=== PATIENT | female | born 2000 | race Caucasian/White ===

== ENCOUNTER 2023-01-21 14:24 | Emergency (ER) | payer BC ==
[~2023-01-21] VITALS: Ht 170.2 cm; Wt 52.2 kg
[2023-01-21 14:30] VITALS: BP_SYST 120
[2023-01-21 15:54] LABS: ANION GAP 9 (5-15); BASOPHILS % (AUTO) 0.4 % (0.0-2.0); CALCIUM 9.1 mg/dL (8.4-11.0); CHLORIDE 100 mmol/L (98-107); CREATININE 0.88 mg/dL (0.55-1.30); EOSINOPHILS % (AUTO) 0.8 % (0.0-4.0); GFR AFRICAN AMERICAN 104 mL/min (>90); GLUCOSE 122 mg/dL (70-99); HEMATOCRIT 38.5 % (36-48); HEMOGLOBIN 13.3 g/dL (12.0-16.0); LYMPHOCYTES # (AUTO) 1.1 K/uL (1.0-5.5); LYMPHOCYTES % (AUTO) 17.8 % (20.5-51.5); MEAN CORPUSCULAR HEMOGLOBIN 34 pg (27-31); MEAN CORPUSCULAR HGB CONC 35 % (32-36); MEAN CORPUSCULAR VOLUME 97 fL (79.0-98.0); MONOCYTES # (AUTO) 0.3 K/uL (0.0-1.0); MONOCYTES % (AUTO) 5.2 % (1.7-9.3); NEUTROPHILS # (AUTO) 4.6 K/uL (1.8-7.7); NEUTROPHILS % (AUTO) 75.8 % (40.0-70.0); PLATELET COUNT (AUTO) 268 K/uL (130-430); RED BLOOD CELL COUNT(AUTO) 3.97 MIL/uL (4.2-6.2); RED CELL DISTRIBUTION WIDTH 13.2 % (9.0-15.0); UREA NITROGEN, BLOOD 9 mg/dL (8-21); WHITE BLOOD COUNT (AUTO) 6.1 K/uL (4.8-10.8)
[2023-01-21 16:01] LABS: ALANINE AMINOTRANSFERASE 28 U/L (12-78); ALBUMIN 4.2 g/dL (3.4-4.8); ASPARTATE AMINOTRANSFERASE 19 U/L (10-37); TOTAL BILIRUBIN 0.5 mg/dL (0.0-1.0)
[2023-01-21] MEDS ORDERED: ALPR0.25 PO (16:38)
[2023-01-21 17:02] VITALS: BP_SYST 117
== END 2023-01-21 17:01 | disposition home or self-care (01) ==
LOC: SED 14:24
DX: R06.4 Hyperventilation (principal); F41.9 Anxiety disorder, unspecified; R06.02 Shortness of breath; R55 Syncope and collapse; Z79.899 Other long term (current) drug therapy
CPT/HCPCS: 36415; 71045; 80053; 81025; 82550; 83605; 84484; 84703; 85025; 93005; 99285